=== PATIENT | female | born 1945 | race Two or more races ===

== ENCOUNTER 2024-05-04 06:39 | Day surgery (SDC) | payer OTHER, SELFPAY ==
[2024-04-30 10:31] VITALS: BMI 22.7
[2024-04-30 11:01] LABS: Hematocrit 42.9 % (37.0-47.0); Hemoglobin 14.7 g/dL (12.0-16.0); Mean Corp Hgb Conc. 34.3 g/dL (33.0-37.0); Mean Corpuscular Hgb 32.2 pg (27.0-31.0); Mean Corpuscular Volume 94.1 fL (81.0-99.0); Mean Platelet Volume 9.7 fL (7.4-10.4); Platelet Count 263 10^3/uL (130-400); Red Blood Cell Count 4.56 10^6/uL (4.20-5.40); Red Cell Dist. Width 12.9 % (11.5-14.5); White Blood Cell Count 6.4 10^3/uL (4.8-10.8)
[2024-05-04] VITALS (12 sets, daily range): BP systolic 106–154; BP diastolic 58–80; BMI 22.7
[2024-05-04] MEDS: HEPARIN 5000 UNITS SC (09:59)
[2024-05-04] MEDS: Pyridium 200 MG PO (10:00)
[2024-05-04] MEDS: NORMOSOL-R/PLASMALYTE-A 1000 IV (10:04)
--- NOTE | 2024-05-04 16:16 | SUR.PHASEI ---
patient awake, alert and oriented, denies pain or nausea. Patient chooses to go home; advised that her daughter thought she should stay overnight. Patient aware and still chooses to go home. When SDS bed available; will instill 300cc nss and
discontinue villafuerte. Patient aware of plan and understands.
== END 2024-05-04 17:52 | disposition home or self-care (01) ==
LOC: SDS 06:39
PROVIDERS: ATTENDING PHYSICIAN Obstetrics & Gynecology; FAMILY PHYSICIAN Internal Medicine
DX: N81.3 Complete uterovaginal prolapse (principal); N39.3 Stress incontinence (female) (male); N32.0 Bladder-neck obstruction; N36.41 Hypermobility of urethra; N72 Inflammatory disease of cervix uteri; N80.03 Adenomyosis of the uterus; N83.202 Unspecified ovarian cyst, left side; N83.201 Unspecified ovarian cyst, right side; N83.8 Other noninflammatory disorders of ovary, fallopian tube and broad ligament
CPT/HCPCS: 57425; 58571; 57287; 53500; 88300; 88305; 36415; 85027; 86850; 86900; 86901; 93005; C1763; C1771; P9045